=== PATIENT | female | born 1945 ===

== ENCOUNTER 2019-01-19 05:30 | Day surgery (SDC) | payer OTHER ==
[~2019-01-19 05:30] MED LIST: ATENOLOL25 MG PO; SYNTHROID50 MCG PO
[2019-01-19] MEDS ORDERED: PERCOCET 5-3251 EACH PO (12:40)
== END 2019-01-19 13:40 | disposition home or self-care (01) ==
LOC: CIR.AMB 05:30
DX: M23.321 Other meniscus derangements, posterior horn of medial meniscus, right knee (principal); M23.351 Other meniscus derangements, posterior horn of lateral meniscus, right knee; M94.261 Chondromalacia, right knee; M65.861 Other synovitis and tenosynovitis, right lower leg